=== PATIENT | male | born 1965 | race Two or more races ===

== ENCOUNTER 2024-09-18 23:09 | Emergency (ER) | payer MEDICAID, SELFPAY ==
[2024-09-18 23:48] VITALS: BP 137/80; PULSE 77; RESP 18; TEMP 36.8; O2SAT 96
--- NOTE | 2024-09-18 23:53 | XR_ITS ---
Examination: CT abdomen and pelvis without contrast. Coronal 3-D reconstructions. Sagittal 2-D reconstructions. Date and time of exam:September 19, 2024, 12:18 AM INDICATIONS: Onset left-sided flank pain today CTDI: vol (mGy): 9. DLP: (mGycm): 558. Technique: Axial images of the abdomen have been obtained, 3 mm slice thickness Intravenous contrast material has not been administered. Low dose protocols were performed. One or more of the following dose reduction techniques were used; automated exposure control, adjustment of the mA and/or KV according to patient size, use of iterative reconstruction technique. Findings: Atelectasis versus pneumonia in the lingular segment No focal liver or splenic lesions No gallstones No pancreatic or adrenal mass 2 mm lower pole right renal calculus, no hydronephrosis or ureteral calculi Aorta normal size 28 mm fat-containing umbilical hernia Normal appendix No bowel obstruction Transverse prostate dimension 4.6 cm No bladder mass, bladder is contracted Impression : 2 mm nonobstructing right renal calculus, no hydronephrosis or ureteral calculi Atelectasis versus pneumonia in the lingular segment
--- NOTE | 2024-09-18 23:54 | PD.EDRME ---
Rapid Medical Screening Exam RME Arrival date/time: 09/18/24 23:09 Chief Complaint: Abdominal Pain Time Seen by Provider: 09/18/24 23:25 Vital signs: Vital Signs Temperature 98.3 F 09/18/24 23:48 Pulse Rate 77 09/18/24 23:48 Respiratory Rate 18 09/18/24 23:48 Blood Pressure 137/80 H 09/18/24 23:48 Pulse Oximetry (%) 96 09/18/24 23:48 Oxygen Delivery Method Room Air 09/18/24 23:48 RME Narrative: Left flank pain, intermittent nausea and vomiting x 2 weeks
[2024-09-19 00:17] LABS: Basophils % (Auto) 0 % (0-2.5); Eosinophils # (Auto) 0.1 Thou/mm3 (0.0-0.5); Eosinophils % (Auto) 2 % (0-10); Hematocrit 43.8 % (41.0-53.0); Hemoglobin 15.4 g/dL (13.5-16.0); Immature Granulocytes % (Auto) 0 % (0-0); Immature Granulocytes Auto 0.02 Thou/mm3 (0.00-0.00); Lymphocytes # (Auto) 1.8 Thou/mm3 (1.0-4.8); Lymphocytes % (Auto) 28 % (10-50); Mean Corpuscular HGB Conc 35.2 g/dl (31.0-37.0); Mean Corpuscular Hemoglobin 32.6 pg (25.0-35.0); Mean Corpuscular Volume 93 fL (80-100); Monocytes # (Auto) 0.5 Thou/mm3 (0.0-0.8); Monocytes % (Auto) 8 % (0-12); Neutrophils # (Auto) 4.1 Thou/mm3 (1.8-7.7); Neutrophils % (Auto) 62 % (37-80); Nucleated Red Blood Cell % 0 /100 WBC (0); Platelet Count 212 Thou/mm3 (140-440); RDW Standard Deviation 44.4 fL (35.1-43.9); Red Blood Count 4.72 Miln/mm3 (4.50-5.90); White Blood Count 6.5 Thou/mm3 (3.8-10.6)
[2024-09-19 00:31] LABS: Alanine Aminotransferase 32 U/L (10-49); Albumin, Serum 4.5 gm/dL (3.4-4.8); Albumin/Globulin Ratio 1.6 (1.2-2.2); Alkaline Phosphatase 70 U/L (46-116); Anion Gap 6 (7-16); Aspartate Amino Transferase 29 U/L (0-34); BUN/Creatinine Ratio 11 Ratio (12-20); Blood Urea Nitrogen 9 mg/dL (9-23); Calcium 9.2 mg/dL (8.3-10.6); Calcium (Corrected) 9.2 mg/dL (8.5-10.1); Carbon Dioxide 24.7 mMol/L (20.0-31.0); Chloride 106 mMol/L (98-107); Creatinine (Component) 0.8 mg/dL (0.6-1.3); Globulin 2.8 gm/dL (2.3-3.5); Glucose 115 mg/dL (74-106); Lipase 46 U/L (12-53); Osmolality,Calculated 273 (275-295); Potassium 4.2 mMol/L (3.4-5.1); Sodium 137 mMol/L (136-145); Total Protein 7.3 gm/dL (5.7-8.2); eGFR > 60 See Note
[2024-09-19 00:34] LABS: Collection Type, Urine Clean Catch
[2024-09-19 00:40] LABS: Bilirubin,Urine Negative (Negative); Blood,Urine Trace (Negative); Clarity,Urine Clear (Clear/Hazy); Color,Urine Yellow (Lt Yel-Yel); Glucose, Urine Negative (Negative); Ketones,Urine 1+ (Negative); Leukocyte Esterase,Urine Negative (Negative); Nitrite,Urine Negative (Negative); Protein,Urine Negative (Neg - Trace); RBC,Urine 6 /hpf (0-3); Specific Gravity,Urine 1.029 (1.001-1.035); Squamous Epithelial Cell,Urine 1 /hpf (0-5); Urobilinogen,Urine Negative mg/dL (0.0-1.0); WBC,Urine 1 /hpf (0-5)
[2024-09-19] MEDS: ONDANSETRON ODT 4 MG TABRAP PO (00:43)
[2024-09-19] MEDS: HYDROcodone/APAP 7.5/325 TABLET 1 TAB PO (00:43)
--- NOTE | 2024-09-19 02:08 | PRELIM_ITS ---
CT scan of the abdomen and pelvis without intravenous contrast (axial sections with sagittal and coronal reformats) September 19, 2024 0018 hours Clinical History: Left flank pain. Reference is made to the prior report dated December 25, 2021. Findings: There is consolidation or atelectasis with air bronchogram in the lingula. There is a subcentimeter hypodensity in the left lobe of the liver, too small to characterize. There is a small 2 mm nonobstructing calculus in the right lower calyx. There is no ureteric calculus or hydroureteronephrosis. The gallbladder, pancreas, spleen and adrenals are unremarkable on this noncontrast study. No evidence of bowel obstruction. The appendix is within normal limits (image 148/287). A moderate amount of fecal material is present in the colon. There is no mesenteric or retroperitoneal adenopathy. The urinary bladder is unremarkable. There is no free fluid or free air. There is a small uncomplicated fat-containing periumbilical hernia, and there is one more smaller fat-containing umbilical hernia. Osseous degenerative changes are noted. A vacuum phenomenon is seen within the intervertebral disc at L5-S1 level. There is a grade I degenerative anterolisthesis of L4 over L5. Impression: 1. No evidence of ureteric/vesical calculus or hydroureteronephrosis. 2. Small nonobstructing right renal calculus. 3. No evidence of bowel obstruction, free air or abscess. 4. Consolidation or atelectasis with air bronchogram on the left lung lingula. Recommend clinical correlation to exclude pneumonia. 5. Other findings as described above. Report Electronically Signed By: Roberto Hills 09/19/2024 2:07:36 AM [EST]
--- NOTE | 2024-09-19 04:05 | PD.EDABDPN ---
ED Abdominal Pain RME/HPI General Chief Complaint: Abdominal Pain Stated complaint: LEFT LOWER BACK PAIN, ABD PAIN Time seen by provider: 09/18/24 23:25 Arrival date/time: 09/18/24 23:09 Source: patient, RN notes reviewed and old records reviewed Mode of arrival: ambulatory Limitations: no limitations RME / HPI RME / HPI narrative: 59yom presents to ED for 2-week history of left flank pain radiating to LLQ. Patient reports intermittent nausea and vomiting since onset. No fever, sob, cp, diarrrhea or urinary symptoms reported. No medications or treatments today. Related Data Previous Rx's ?Medication ?Instructions ?Recorded cyclobenzaprine 5 mg tablet 5 mg PO TID #21 tabs 05/19/19 hydrocodone 5 mg-acetaminophen 325 1 tab PO Q6H #20 tabs 05/19/19 mg tablet ([place]) ibuprofen 600 mg tablet 600 mg PO Q6H PRN pain #30 tabs 04/01/23 naproxen 500 mg tablet 500 mg PO BID PRN pain #20 tabs 09/19/24 ondansetron 4 mg disintegrating 4 mg PO Q6H PRN nausea and 09/19/24 tablet vomiting #10 tabs Allergies Allergy/AdvReac Type Severity Reaction Status Date / Time No Known Allergies Allergy Verified 09/18/24 23:11 Review of Systems Review of Systems Systems Reviewed: All systems reviewed, normal except as documented Constitutional Constitutional: Denies chills and Denies fever(s) Cardiovascular Cardiovascular: Denies chest pain and Denies dyspnea Respiratory Respiratory: Denies cough and Denies dyspnea Gastrointestinal Gastrointestinal: Reports abdominal pain, Denies loose stools, Reports nausea and Reports vomiting Genitourinary Genitourinary: Denies dysuria, Reports flank pain and Denies hematuria Past Medical History Surgical History OTHER SURGICAL HX: denies pshx Social History SMOKING STATUS: Never smoker SUBSTANCE USE: does not use ALCOHOL: Never Past Medical History Comments PMH COMMENT: denies pmhx ED Exam General Limitations: Present no limitations General appearance: Present alert and in no apparent distress Head Head exam: Present atraumatic and normocephalic Eye Eye exam: Present normal appearance, PERRL and EOMI ENT ENT exam: Present normal exam and mucous membranes moist Neck Neck exam: Present normal inspection and full ROM Chest Chest inspection: Present normal inspection and symmetric chest wall rise Respiratory Respiratory exam: Present normal lung sounds bilaterally; Absent respiratory distress Cardiovascular Cardiovascular exam: Present regular rate and normal rhythm Abdominal Exam Abdominal exam: Present soft; Absent distention, tenderness, guarding or rebound Extremities Exam Extremities exam: Present normal inspection and full ROM Back Exam Back exam: Absent CVA tenderness (R) or CVA tenderness (L) Neurological Exam Neurological exam: Present alert and oriented X3 Psychiatric Psychiatric exam: Present normal affect and normal mood Skin Skin exam: Present warm, dry, intact and normal color Course Quality Measures none Orders Category Date Time Status CT abdomen pelvis wo con Stat Exams 09/18/24 23:53 Completed CBC Stat Lab 09/18/24 23:58 Completed CMP [Comprehensive Metabolic Panel] Stat Lab 09/18/24 23:58 Completed Lipase Stat Lab 09/18/24 23:58 Completed UA [Urinalysis] Stat Lab 09/19/24 00:17 Completed HYDROcodone*/APAP 7.5/325 [[place] 7.5/325] Med 09/18/24 23:53 Discontinued 1 tab PO X1 ONE Ondansetron Odt [Zofran Odt] Med 09/18/24 23:53 Discontinued 4 mg PO X1 ONE Vital Signs Vital signs: Vital Signs Temperature 98.3 F 09/18/24 23:48 Pulse Rate 77 09/18/24 23:48 Respiratory Rate 18 09/18/24 23:48 Blood Pressure 137/80 H 09/18/24 23:48 Pulse Oximetry (%) 96 09/18/24 23:48 Oxygen Delivery Method Room Air 09/18/24 23:48 Abdominal Pain MDM MDM Narrative MDM Narrative:: 59yom presents to ED for 2-week history of left flank pain radiating to LLQ. Patient reports intermittent nausea and vomiting since onset. No fever, sob, cp, diarrrhea or urinary symptoms reported. No medications or treatments today. Patient updated on labs and imaging. Possibly recent passed stone. Encouraged adequate fluids and miralax prn constipation. Close pcp follow up. Stable for dc, RTED precautions given. Patient data External records reviewed:: [facility] previous records (04/01/23 ED visit for left knee sprain) Clinical information provided by:: patient Social determinants that could affect healthcare access:: other (specify) (poor access to healthcare) Patient has the following chronic illnesses:: none How is presenting disease/condition affected by chronic disease/condition?: no chronic disease Evaluation data The following diagnostics were reviewed and interpreted by me:: lab results and radiology exam(s) Lab and/or radiology exams considered but not ordered:: none Interpretation Summary: No leukocytosis UA -leuks, trace blood LFTs and lipase wnl No CITLALI Medications / Prescriptions Medications or Prescriptions considered but not ordered:: no antibiotics recommended at this time Medication administrations:: Medication Administration History Discontinued Medications Hydrocodone Bitart/Acetaminophen (Hydrocodone/[place]ap 7.5/325 Tablet) 1 tab PO X1 ONE Stop: 09/18/24 23:54 Last Admin: 09/19/24 00:43 Dose: 1 tab Documented By: Ondansetron HCl (Ondansetron Odt 4 Mg Tabrap) 4 mg PO X1 ONE; Protocol Stop: 09/18/24 23:54 Last Admin: 09/19/24 00:43 Dose: 4 mg Documented By: above medications administered in ED Consultations Consultation(s) initiated? (list below): No Diagnosis Differential diagnosis abdominal pain: abdominal pain, calculus of kidney, constipation, diverticulitis, gastroenteritis, pancreatitis and small bowel obstruction Most likely diagnosis given after review of the tests above:: flank pain Admission Indicated Admission indicated?: not indicated Admission Request Was there a request for admission?: No Disposition Plan Disposition Plan: Discharge Discharge Attestation Discharge Attestation: The patient and all family members were given an opportunity to ask questions and understood the discharge instructions. Discharge instructions specifically effects, indications for sooner follow up or return to the emergency department, and the expected course of current diagnosis. Patient condition: Stable Discharge Plan Plan Patient Disposition: HOME (Self Care) Patient condition on transfer: Stable Prescriptions/Referrals Prescriptions/Med Rec: New ondansetron 4 mg tablet,disintegrating 4 mg PO Q6H PRN (Reason: nausea and vomiting) Qty: 10 0RF naproxen 500 mg tablet 500 mg PO BID PRN (Reason: pain) Qty: 20 0RF No Action cyclobenzaprine 5 mg tablet 5 mg PO TID Qty: 21 0RF hydrocodone-acetaminophen [[place]] 5-325 mg tablet 1 tab PO Q6H MDD 6 Qty: 20 0RF ibuprofen 600 mg tablet 600 mg PO Q6H PRN (Reason: pain) Qty: 30 0RF Referrals: Miriam Monson [Primary Care Provider] - In 1 week Problem List Clinical Impression: Left flank pain Patient/Caregiver Discharge Instructions Education Materials: ED Flank Pain, Uncertain Cause Additional Instructions: Your CT scan showed moderate stool. May be helpful to use a laxative at home as needed. Make sure to drink plenty of fluids. Print Language: [place] Stand Alone Forms: Nelly Award Info., Patient Portal Info Letter PA/SENIOR SOFTWARE QUALITY ANALYST Supervising Physician PA/SENIOR SOFTWARE QUALITY ANALYST Supervising Physician: Kaitlin
[2024-09-19 04:26] VITALS: RESP 16
== END 2024-09-19 04:26 | disposition home or self-care (01) ==
PROVIDERS: Physician Assistant; Emergency Provider Emergency Medicine; PCP Physician Assistant
DX: N20.0 Calculus of kidney (principal)
CPT/HCPCS: 36415; 74176; 80053; 81001; 83690; 85025; 99284; Q0162; A9270

== ENCOUNTER 2024-11-04 06:40 | Day surgery (SDC) | payer MEDICAID, SELFPAY ==
--- NOTE | 2024-11-03 06:37 | EKG_ITS ---
[facility] Test Date: 2024-11-03 Pat Name: SOULEYMANE MASON Department: Room: - Gender: Male Cold Working Supervisor: TANIYA : 1965 Requested By: Jacques Garrido Order Number: [id number] Reading MD: Jacques Garrido Measurements Intervals [place] Rate: 65 P: 57 DC: 175 QRS: 67 QRSD: 88 T: 47 QT: 353 QTc: 368 Interpretive Statements SINUS RHYTHM Compared to ECG 05/19/2019 09:53:58 No significant changes /store/S0/[id number].pdf
[2024-11-03 09:56] VITALS: BMI 34.3
[2024-11-03 11:05] LABS: Basophils # (Auto) 0.0 Thou/mm3 (0.0-0.2); Basophils % (Auto) 1 % (0-2.5); Eosinophils # (Auto) 0.2 Thou/mm3 (0.0-0.5); Eosinophils % (Auto) 4 % (0-10); Hematocrit 39.3 % (41.0-53.0); Hemoglobin 13.3 g/dL (13.5-16.0); Immature Granulocytes Auto 0.02 Thou/mm3 (0.00-0.00); Lymphocytes # (Auto) 1.9 Thou/mm3 (1.0-4.8); Lymphocytes % (Auto) 31 % (10-50); Mean Corpuscular HGB Conc 33.8 g/dl (31.0-37.0); Mean Corpuscular Hemoglobin 32.2 pg (25.0-35.0); Mean Corpuscular Volume 95 fL (80-100); Monocytes # (Auto) 0.7 Thou/mm3 (0.0-0.8); Monocytes % (Auto) 11 % (0-12); Neutrophils # (Auto) 3.2 Thou/mm3 (1.8-7.7); Neutrophils % (Auto) 53 % (37-80); Nucleated Red Blood Cell # 0.00 Thou/mm3 (0.00-0.00); Nucleated Red Blood Cell % 0 /100 WBC (0); Platelet Count 219 Thou/mm3 (140-440); RDW Standard Deviation 46.0 fL (35.1-43.9); Red Blood Count 4.13 Miln/mm3 (4.50-5.90); White Blood Count 6.0 Thou/mm3 (3.8-10.6)
[2024-11-03 11:17] LABS: Alanine Aminotransferase 24 U/L (10-49); Albumin, Serum 4.4 gm/dL (3.4-4.8); Albumin/Globulin Ratio 1.8 (1.2-2.2); Alkaline Phosphatase 80 U/L (46-116); Anion Gap 6 (7-16); Aspartate Amino Transferase 25 U/L (0-34); BUN/Creatinine Ratio 10 Ratio (12-20); Bilirubin,Total 0.6 mg/dL (0.3-1.2); Blood Urea Nitrogen 10 mg/dL (9-23); Calcium 9.8 mg/dL (8.3-10.6); Calcium (Corrected) 9.8 mg/dL (8.5-10.1); Carbon Dioxide 27.6 mMol/L (20.0-31.0); Chloride 105 mMol/L (98-107); Creatinine (Component) 1.0 mg/dL (0.6-1.3); Estimated Creatinine Clearance 78.8 mL/min (>60); Globulin 2.5 gm/dL (2.3-3.5); Glucose 95 mg/dL (74-106); Osmolality,Calculated 276 (275-295); Potassium 4.0 mMol/L (3.4-5.1); Sodium 139 mMol/L (136-145); Total Protein 6.9 gm/dL (5.7-8.2); eGFR > 60 See Note
[2024-11-04] VITALS (12 sets, daily range): BP systolic 125–150; BP diastolic 78–107; PULSE 72–84; RESP 14–20; TEMP 36.3–37; O2SAT 94–100; BMI 33.0
[2024-11-04] MEDS: RINGERS LACTATED 1000 ML 1,000 ML 20 ML IV (07:40)
--- NOTE | 2024-11-04 09:55 | SUR.PHASEI ---
pt received from OR in recovery bay 5. pt obtunded, breathing unlabored on oxymask 10l, oral airway in place. v/s stable. pt dressing to abd dermabond x4. report received from Dr. Johnson and Dwayne JAMES.
--- NOTE | 2024-11-04 09:58 | PD.SUROPNT ---
Date of Procedure 11/04/24 Pre Op Diagnosis Incarcerated ventral hernia Post Op Diagnosis Incarcerated supraumbilical ventral hernia Procedure Laparoscopic assisted repair of incarcerated ventral hernia with mesh Findings An approximately 3 cm supraumbilical ventral hernia with incarcerated omentum Procedure Description Patient brought into the operating room in supine position. After administration of general orotracheal anesthesia, patient's abdomen prepped and draped in standard surgical manner. A 5 mm incision was made in left upper quadrant and Veress needle was inserted, pneumoperitoneum was obtained to 15 mmHg. The Veress needle was removed and a 5 mm trocar was placed. Laparoscopic camera was inserted, under direct visualization a laparoscopic camera a 5 mm trocar placed in left lower quadrant and additional 5 mm trocar placed in right lower quadrant. The abdomen was inspected and patient was noted to have an incarcerated supraumbilical ventral hernia with omentum being incarcerated within the hernia sac. The hernia sac was excised with Harmonic scalpel laparoscopically and the omentum was reduced. At this point approximately 3 cm vertical incision was made over the hernia defect and dissection was carried to subcutaneous tissue. The large hernia sac was circumferentially dissected off surrounding tissue and excised from surrounding abdominal fascia. The fascia was cleared from overlying tissue. The defect was approximately 3 cm in diameter. A 4 x 6 elliptical shape proceed mesh was used to cover the defect. 2 tacking sutures using 0 Ethibond placed the 2 ends of the mesh and the mesh was placed inside the abdominal cavity through the hernia defect. The defect was closed with interrupted sutures using 0 Ethibond. Deep soft tissue reapproximated with interrupted sutures using 0 Vicryl. The abdomen was once again insufflated. 2 tacking sutures of the 2 ends of the mesh were retrieved through the previously marked abdominal wall site. Sutures were tightened and the mesh was further secured into anterior abdominal wall with secure strap tacking device. The mesh was covering the defect with at least 4 cm circumferential margin. Hemostasis was adequate and satisfactory. Instruments and trocars removed, pneumoperitoneum was evacuated and the incisions closed 4-0 Monocryl subcuticular fashion. Instruments, needles and sponge counts were reported to be correct ?2 patient tolerated the procedure well. Patient was extubated, breathing spontaneously and without difficulty and was transferred to postanesthesia care in stable condition. Anesthesia GETA and local Pathology / specimen Other (Hernia sac) Estimated Blood Loss 10 Condition Stable Disposition PACU Surgeon Jacques Garrido MD Surgical Staff Operation Date: 11/04/24 09:00 Case Staff Anesthesiologist: Darren Johnson RNbrokerage office manager: Jenna Escobedo
[2024-11-04] MEDS: fentaNYL CIT INJ 50 mCg/ML AMP 2ML IVP ×2 (10:08→10:50)
[2024-11-04] MEDS: MORPHINE SULF INJ 10 MG/ML VIAL 2 MG IVP (10:27)
[2024-11-04] MEDS: KETOROLAC INJ 30 MG/ML VIAL IVP (11:03)
--- NOTE | 2024-11-04 11:05 | SUR.PHASEII ---
1105: received report from JACOB Ellsworth. pt alert and oriented. dressing to mid abdomen clean, dry and intact. abdominal binder in place. no s/s of resp. distress or discomfort.
[2024-11-04] MEDS: HYDROmorphone INJ 2 MG/ML VIAL 0.5 MG IVP (11:26)
--- NOTE | 2024-11-04 11:28 | SUR.PHASEII ---
1128: able to drink water without any difficulty.
--- NOTE | 2024-11-04 11:57 | SUR.PHASEII ---
pt awake and alert, breathing unlabored on room air. v/s stable. pt dressing to abd cdi. abd binder in place. pt able to ambulate to wheelchair with steady gait. d/c instructions given with daughter Emily in room, all questions answered. pt d/c via wheelchair with all belongings.
== END 2024-11-04 11:57 | disposition home or self-care (01) ==
PROVIDERS: Anesthesiology; PCP Physician Assistant; Referring Provider Surgery; Visit Provider Surgery
PROC: 0WQF4ZZ Repair Abdominal Wall, Percutaneous Endoscopic Approach (ICD-10-PCS; CPT 49594; principal; 2024-11-04 09:00)
DX: K43.6 Other and unspecified ventral hernia with obstruction, without gangrene (principal); Z01.810 Encounter for preprocedural cardiovascular examination
CPT/HCPCS: 49594; 36415; 80048; 80053; 85025; 93005; A4217; A4649; C1781; J0131; J0690; J1100; J1171; J1885; J2270; J2371; J2704; J2765; J3010; J3490; J7120; J1805